=== PATIENT | female | born 1990 | race American Indian/Alaskan Native ===

== ENCOUNTER 2020-11-06 04:38 | Emergency (ER) | payer OTHER ==
[~2020-11-06] VITALS: Ht 167.6 cm; Wt 80.0 kg
--- NOTE | 2020-11-06 08:31 | NUR ---
amelia pts [place]- [phone]
[2020-11-06 08:52] VITALS: BP 89/61
== END 2020-11-06 10:45 | disposition home or self-care (01) ==
LOC: ER 04:40
DX: S09.90XA Unspecified injury of head, initial encounter (principal); Z90.49 Acquired absence of other specified parts of digestive tract; Z79.2 Long term (current) use of antibiotics; W22.8XXA Striking against or struck by other objects, initial encounter; Y93.89 Activity, other specified; Y92.89 Other specified places as the place of occurrence of the external cause; Y99.8 Other external cause status
CPT/HCPCS: 70450; 99284